=== PATIENT | male | born 1975 | race Caucasian/White ===

== ENCOUNTER 2020-11-22 11:21 | Inpatient (IN) | payer BC, OTHER ==
[2020-11-22 13:59] LABS: Absolute Lymphocytes (CBC) 0.2 K/uL (0.7-4.9); Basophils % 0.2 % (0-1.3); Lymphocytes % 3.1 % (15.3-44.8); MPV 8.7 fL (7.6-11.3); RBC Red Blood Cell Count 6.09 M/uL (4.33-5.43)
--- NOTE | 2020-11-22 14:04 | RAD REPORT ---
EXAM DESCRIPTION: RAD - Chest Single View - 11/22/2020 1:55 pm CLINICAL HISTORY: SOB Chest pain. COMPARISON: No comparisons FINDINGS: Portable technique limits examination quality. Extensive pulmonary opacities are present, more severe on the left, likely related to underlying COVI D-19 infection. The heart is normal in size. No displaced fractures.
[2020-11-22 14:23] LABS: ALT/SGPT 58 U/L (12-78); AST/SGOT 77 U/L (15-37); Albumin 3.2 g/dL (3.4-5.0); Alkaline Phosphatase 57 U/L (45-117); BUN Blood Urea Nitrogen 10 mg/dL (7-18); Bicarbonate 31 mmol/L (21-32); Bilirubin Direct 0.6 mg/dL (0-0.2); Bilirubin Total 1.1 mg/dL (0.2-1.0); Ferritin 838.7 ng/mL (26-388); Glucose Level 173 mg/dL (74-106); Lipase 108 U/L (73-393); Potassium 3.7 mmol/L (3.5-5.1); Protein, Total 7.4 g/dL (6.4-8.2); Sodium Level 133 mmol/L (136-145); Troponin (Emerg Dept Use Only) < 0.02 ng/mL (0.0-0.045)
[2020-11-22 14:37] LABS: Protime INR 1.18
[2020-11-22] MEDS ORDERED: NA CHLORIDE 0.9% 3,000 ML ONE (14:42)
--- NOTE | 2020-11-22 15:09 | RAD REPORT ---
EXAM DESCRIPTION: CT - Chest For Pe Angio - 11/22/2020 2:58 pm CLINICAL HISTORY: Chest pain. Cough;Congestion COMPARISON: No comparisons TECHNIQUE: CT angiogram of the pulmonary arteries was performed with MIP. All CT scans are performed using dose optimization technique as appropriate and may include automated exposure control or mA/KV adjustment according to patient size. FINDINGS: No evidence of pulmonary thromboembolism. No acute aortic finding demonstrated. There is extensive bilateral alveolar lung opacity present, greater on the left. This is most compati ble with underlying COVID-19 infection. No significant pericardial or pleural fluid. No concerning bony finding. IMPRESSION: No evidence of pulmonary thromboembolism. Extensive bilateral findings of COVID-19 infection seen, more severe on the left.
[2020-11-22 15:18] LABS: Blood Morphology Comment NOT SEEN (NOT SEEN); Platelet Estimate ADEQ; White Blood Cell Scan OK (OK)
[2020-11-22 15:56] LABS: Urine Blood 2+ (Negative); Urine Glucose 2+ (Negative); Urine Protein 3+ (Negative); Urine pH 6.5 (5.0-7.0)
[2020-11-22 16:52] LABS: Urine Bacteria <20 /HPF (NONE SEEN); Urine Mucus 1+ /HPF (NONE SEEN)
--- NOTE | 2020-11-22 17:21 | ER ---
Nurse's Notes [facility] Name: Chris Haas Age: 45 yrs Sex: Male : 1975 Arrival Date: 11/22/2020 Time: 11:25 Bed 24 Private MD: Diagnosis: SARS-associated coronavirus as the cause of diseases classified elsewhere;Other viral pneumonia;Shortness of breath Presentation: 11/22 12:57 Chief complaint: Patient states: SOB, anxiety, coughing up blood, diarrhea x 1 wk. kg COVID + 11/13. Coronavirus screen: Client denies travel out of the [place] in the last 14 days. At this time, unable to obtain information related to travel outside the [place] Client presents with at least one sign or symptom that may indicate coronavirus-19. Standard/surgical mask placed on the client. Provider contacted for isolation considerations. Client reports previous positive COVID test result. Date of collection: November 13, 2020. Ebola Screen: Patient negative for fever greater than or equal to 101.5 degrees Fahrenheit, and additional compatible Ebola Virus Disease symptoms Patient denies exposure to infectious person. Patient denies travel to an Ebola-affected area in the 21 days before illness onset. Initial Sepsis Screen: Does the patient meet any 2 criteria? No. Patient's initial sepsis screen is negative. Does the patient have a suspected source of infection? No. Patient's initial sepsis screen is negative. Risk Assessment: Do you want to hurt yourself or someone else? Patient reports no desire to harm self or others. Onset of symptoms was November 13, 2020. 12:57 Method Of Arrival: Ambulatory kg 12:57 Acuity: DINESH 3 kg Triage Assessment: 13:00 General: Appears uncomfortable, Behavior is calm, cooperative, appropriate for age, kg quiet. Pain: Complains of pain in face and chest Pain radiates to Generalized Pain currently is 8 out of 10 on a pain scale. at worst was 10 out of 10 on a pain scale. level that patient reports is acceptable is 3 out of 10 on a pain scale. Respiratory: Reports shortness of breath cough that is pain with cough Coughing up blood Onset: The symptoms/episode began/occurred 11/13, the patient has moderate shortness of breath. Historical: - Allergies: 13:00 IV contrast; kg - Home Meds: 13:00 None [Active]; kg - PMHx: 13:00 None; kg - PSHx: 13:00 None; kg - Immunization history:: Adult Immunizations not up to date, Client reports having NOT received the Covid vaccine. - Social history:: Smoking status: Patient denies any tobacco usage or history of. Screenin:02 Abuse screen: Denies threats or abuse. Denies injuries from another. Nutritional kg screening: No deficits noted. Tuberculosis screening: No symptoms or risk factors identified. Fall Risk None identified. Assessment: 13:30 General: Appears in no apparent distress. uncomfortable, Behavior is. General: Reports ca1 feeling ill for > 3 days. Pain: Denies pain. Neuro: Level of Consciousness is awake, alert, obeys commands, Oriented to person, place, time, situation. Cardiovascular: Heart tones S1 S2 present Capillary refill < 3 seconds Patient's skin is warm and dry. Rhythm is sinus tachycardia. Respiratory: Airway is patent Respiratory effort is even, Respiratory pattern is tachypnea Breath sounds are coarse bilaterally. Respiratory: Reports shortness of breath cough that is. GI: Abdomen is flat, non-distended, Bowel sounds present X 4 quads. Abd is soft and non tender. GI: Reports diarrhea, nausea, vomiting. : No signs and/or symptoms were reported regarding the genitourinary system. EENT: No signs and/or symptoms were reported regarding the EENT system. Derm: Skin is intact, is healthy with good turgor, Skin is pink, warm \T\ dry. Musculoskeletal: Circulation, motion, and sensation intact. Capillary refill < 3 seconds. 14:30 Reassessment: Patient appears in no apparent distress at this time. Patient and/or ca1 family updated on plan of care and expected duration. Pain level reassessed. Patient is alert, oriented x 3, equal unlabored respirations, skin warm/dry/pink. 15:28 Reassessment: Patient appears in no apparent distress at this time. Patient and/or ca1 family updated on plan of care and expected duration. Pain level reassessed. Patient is alert, oriented x 3, equal unlabored respirations, skin warm/dry/pink. 16:45 Reassessment: Patient appears in no apparent distress at this time. Patient and/or ca1 family updated on plan of care and expected duration. Pain level reassessed. Patient is alert, oriented x 3, equal unlabored respirations, skin warm/dry/pink. 17:45 Reassessment: Patient appears in no apparent distress at this time. Patient and/or ca1 family updated on plan of care and expected duration. Pain level reassessed. Patient is alert, oriented x 3, equal unlabored respirations, skin warm/dry/pink. 18:45 Reassessment: Patient appears in no apparent distress at this time. Patient and/or ca1 family updated on plan of care and expected duration. Pain level reassessed. Patient is alert, oriented x 3, equal unlabored respirations, skin warm/dry/pink. 19:45 Reassessment: Patient appears in no apparent distress at this time. Patient and/or ca1 family updated on plan of care and expected duration. Pain level reassessed. Patient is alert, oriented x 3, equal unlabored respirations, skin warm/dry/pink. Patient states symptoms have improved. 20:45 Reassessment: Patient appears in no apparent distress at this time. Patient and/or ca1 family updated on plan of care and expected duration. Pain level reassessed. Patient is alert, oriented x 3, equal unlabored respirations, skin warm/dry/pink. 21:50 Reassessment: Patient appears in no apparent distress at this time. Patient and/or ca1 family updated on plan of care and expected duration. Pain level reassessed. Patient is alert, oriented x 3, equal unlabored respirations, skin warm/dry/pink. Vital Signs: 12:57 BP 143 / 91; Pulse 131; Resp 24; Temp 99.1(O); Pulse Ox 88% on R/A; Weight 95.25 kg ca1 (R); Height 5 ft. 11 in. (180.34 cm) (R); Pain 8/10; 13:24 BP 136 / 79; Pulse 126; Resp 24; Pulse Ox 90% on 5 lpm NC; mt 15:28 BP 154 / 93; Pulse 126; Resp 28 S; Pulse Ox 93% on 4 lpm NC; ca1 16:45 BP 165 / 93; Pulse 115; Resp 24; Pulse Ox 92% on 4 lpm NC; ca1 17:45 BP 168 / 94; Pulse 114; Resp 22; Pulse Ox 94% on 4 lpm NC; ca1 18:45 BP 148 / 93; Pulse 109; Resp 22; Pulse Ox 92% on 4 lpm NC; ca1 19:45 BP 169 / 95; Pulse 109; Resp 28; Pulse Ox 94% on 4 lpm NC; ca1 20:45 BP 156 / 89; Pulse 109; Resp 18 S; Pulse Ox 94% on 4 lpm NC; ca1 12:57 Body Mass Index 29.29 (95.25 kg, 180.34 cm) ca1 ED Course: 11:25 Patient arrived in ED. mr 13:00 Triage completed. kg 13:00 Arm band placed on right wrist. kg 13:15 Yousif Michaels MD is Attending Physician. kdr 13:21 Jenelle Dunn, ARAMIS is Primary Nurse. ca1 13:39 Initial lab(s) drawn, by me, sent to lab. Inserted saline lock: 20 gauge in right ca1 antecubital area, using aseptic technique. Blood collected. 13:39 No provider procedures requiring assistance completed. ca1 13:50 Patient has correct armband on for positive identification. Placed in gown. Bed in low ca1 position. Call light in reach. Side rails up X2. bus driver/monitor on. Pulse ox on. NIBP on. 13:55 XRAY Chest (1 view) In Process Unspecified. EDMS 14:39 Notified ED physician of a critical lab result(s). D-Dimer 754. ca1 14:58 CT Chest For PE Angio In Process Unspecified. EDMS 17:19 Shahram Phillips MD is Hospitalizing Provider. kdr 21:52 Patient admitted, IV remains in place. ca1 Administered Medications: 14:25 Drug: NS 0.9% (30 ml/kg) 30 ml/kg Route: IV; Rate: bolus; Site: left antecubital; ca1 17:00 Follow up: IV Status: Completed infusion; IV Intake: 2800ml ca1 15:05 Drug: SOLU-Medrol (methylPrednisoLONE) 125 mg Route: IVP; Site: right antecubital; ca1 15:57 Follow up: Response: No adverse reaction ca1 16:00 Follow up: Response: No adverse reaction ca1 15:08 Drug: Lovenox (enoxaparin) 1 mg/kg Route: Sub-Q; Site: right lower abdomen; ca1 15:57 Follow up: Response: No adverse reaction ca1 16:00 Follow up: Response: No adverse reaction ca1 15:10 Drug: Rocephin - (cefTRIAXone) 1 grams Route: IVPB; Infused Over: 30 mins; Site: right ca1 antecubital; 15:57 Follow up: Response: No adverse reaction; IV Status: Completed infusion ca1 16:00 Follow up: Response: No adverse reaction; IV Status: Completed infusion ca1 Intake: 17:00 IV: 2800ml; Total: 2800ml. ca1 Outcome: 17:21 Decision to Hospitalize by Provider. kdr 21:52 Admitted to ER Hold. Please see [facility] for further documentation. ca1 21:52 Condition: stable 21:52 Condition: improved 21:52 Instructed on the need for admit. 11/25 11:53 Patient left the ED. bd Signatures: Dispatcher [employer] EDMS Gladis Ricks Kevin, MD MD [facility] Mariama Herron, [facility] Jenelle Dunn RN RN ca1 Fatou Lau RN RN kg Corrections: (The following items were deleted from the chart) 11/22 17:11 15:28 BP 154 / 93; Pulse 126bpm; Resp 28bpm; Spontaneous; Pulse Ox 93% RA; ca1 ca1 20:50 12:57 BP 143 / 91; Pulse 131bpm; Resp 24bpm; Pulse Ox 88% RA; Temp 99.1F Oral; 95.25 kg ca1 Reported; Height 5 ft. 11 in. Reported; BMI: 29.2; Pain 8/10; kg
--- NOTE | 2020-11-22 17:21 | EDPHYS ---
Physician Documentation [facility] Name: Chris Haas Age: 45 yrs Sex: Male : 1975 Arrival Date: 11/22/2020 Time: 11:25 Bed 24 Private MD: ED Physician Yousif Michaels HPI: 11/22 19:48 This 45 yrs old Male presents to ER via Ambulatory with complaints of COVID+, kdr Breathing Difficulty, Cough. 19:48 The patient has shortness of breath at rest, with light activity. Onset: The kdr symptoms/episode began/occurred suddenly, 4 day(s) ago. Duration: The symptoms are intermittent, with no pattern. The patient's shortness of breath is aggravated by drinking, exertion, light activity, is alleviated by nothing. Associated signs and symptoms: Pertinent positives: productive cough, hemoptysis, nausea. Severity of symptoms: At their worst the symptoms were mild moderate just prior to arrival, in the emergency department the symptoms are unchanged. The patient has not experienced similar symptoms in the past. The patient has not recently seen a physician. Historical: - Allergies: 13:00 IV contrast; kg - Home Meds: 13:00 None [Active]; kg - PMHx: 13:00 None; kg - PSHx: 13:00 None; kg - Immunization history:: Adult Immunizations not up to date, Client reports having NOT received the Covid vaccine. - Social history:: Smoking status: Patient denies any tobacco usage or history of. ROS: 19:48 Constitutional: Negative for fever, chills, and weight loss, Eyes: Negative for injury, kdr pain, redness, and discharge, Neck: Negative for injury, pain, and swelling, Cardiovascular: Negative for chest pain, palpitations, and edema, Abdomen/GI: Negative for abdominal pain, nausea, vomiting, diarrhea, and constipation, Back: Negative for injury and pain, MS/Extremity: Negative for injury and deformity, Skin: Negative for injury, rash, and discoloration, Neuro: Negative for headache, weakness, numbness, tingling, and seizure activity. Psych: Negative for depression, anxiety, suicide ideation, homicidal ideation, and hallucinations, Allergy/Immunology: Negative for hives, rash, and allergies, Endocrine: Negative for neck swelling, polydipsia, polyuria, polyphagia, and marked weight changes, Hematologic/Lymphatic: Negative for swollen nodes, abnormal bleeding, and unusual bruising. 19:48 Respiratory: Positive for cough, with rust-colored sputum, dyspnea on exertion, shortness of breath, on exertion. Exam: 19:48 Constitutional: This is a well developed, well nourished patient who is awake, alert, kdr and in no acute distress. Head/Face: Normocephalic, atraumatic. Eyes: Pupils equal round and reactive to light, extra-ocular motions intact. Lids and lashes normal. Conjunctiva and sclera are non-icteric and not injected. Cornea within normal limits. Periorbital areas with no swelling, redness, or edema. Neck: Trachea midline, no thyromegaly or masses palpated, and no cervical lymphadenopathy. Supple, full range of motion without nuchal rigidity, or vertebral point tenderness. No Meningismus. Chest/axilla: Normal chest wall appearance and motion. Nontender with no deformity. No lesions are appreciated. Cardiovascular: Regular rate and rhythm with a normal S1 and S2. No gallops, murmurs, or rubs. Normal PMI, no JVD. No pulse deficits. Respiratory: Lungs have equal breath sounds bilaterally, clear to auscultation and percussion. No rales, rhonchi or wheezes noted. No increased work of breathing, no retractions or nasal flaring. Abdomen/GI: Soft, non-tender, with normal bowel sounds. No distension or tympany. No guarding or rebound. No evidence of tenderness throughout. Back: No spinal tenderness. No costovertebral tenderness. Full range of motion. Skin: Warm, dry with normal turgor. Normal color with no rashes, no lesions, and no evidence of cellulitis. MS/ Extremity: Pulses equal, no cyanosis. Neurovascular intact. Full, normal range of motion. Neuro: Awake and alert, GCS 15, oriented to person, place, time, and situation. Cranial nerves II-XII grossly intact. Motor strength 5/5 in all extremities. Sensory grossly intact. Cerebellar exam normal. Normal gait. Psych: Awake, alert, with orientation to person, place and time. Behavior, mood, and affect are within normal limits. 19:48 Respiratory: the patient does not display signs of respiratory distress, Respirations: normal, Breath sounds: rhonchi, that are mild, are scattered. Vital Signs: 12:57 BP 143 / 91; Pulse 131; Resp 24; Temp 99.1(O); Pulse Ox 88% on R/A; Weight 95.25 kg ca1 (R); Height 5 ft. 11 in. (180.34 cm) (R); Pain 8/10; 13:24 BP 136 / 79; Pulse 126; Resp 24; Pulse Ox 90% on 5 lpm NC; mt 15:28 BP 154 / 93; Pulse 126; Resp 28 S; Pulse Ox 93% on 4 lpm NC; ca1 16:45 BP 165 / 93; Pulse 115; Resp 24; Pulse Ox 92% on 4 lpm NC; ca1 17:45 BP 168 / 94; Pulse 114; Resp 22; Pulse Ox 94% on 4 lpm NC; ca1 18:45 BP 148 / 93; Pulse 109; Resp 22; Pulse Ox 92% on 4 lpm NC; ca1 19:45 BP 169 / 95; Pulse 109; Resp 28; Pulse Ox 94% on 4 lpm NC; ca1 20:45 BP 156 / 89; Pulse 109; Resp 18 S; Pulse Ox 94% on 4 lpm NC; ca1 12:57 Body Mass Index 29.29 (95.25 kg, 180.34 cm) ca1 MDM: 17:21 Patient medically screened. kdr 19:48 Data reviewed: vital signs, nurses notes, lab test result(s), radiologic studies. kdr Counseling: I had a detailed discussion with the patient and/or guardian regarding: the historical points, exam findings, and any diagnostic results supporting the discharge/admit diagnosis, lab results, radiology results, the need for outpatient follow up. 11/22 13:15 Order name: BMP kdr 11/22 13:15 Order name: Blood Culture Adult (2) kdr 11/22 13:15 Order name: C-Reactive Protein kdr 11/22 13:15 Order name: CBC with Diff; Complete Time: 15:57 kdr 11/22 13:15 Order name: D-Dimer; Complete Time: 14:58 kdr 11/22 13:15 Order name: Ferritin; Complete Time: 14:58 kdr 11/22 13:15 Order name: Flu; Complete Time: 15:57 kdr 11/22 13:15 Order name: LFT's; Complete Time: 14:58 kdr 11/22 13:15 Order name: Lactate; Complete Time: 14:58 kdr 08 13:15 Order name: Lipase; Complete Time: 14:58 kdr 08 13:15 Order name: PT-INR; Complete Time: 14:58 kdr 08 13:15 Order name: Procalcitonin; Complete Time: 14:58 kdr 08 13:15 Order name: Ptt, Activated; Complete Time: 14:58 kdr 08 13:15 Order name: Strep; Complete Time: 15:57 kdr 08 13:15 Order name: Troponin (emerg Dept Use Only); Complete Time: 14:58 kdr 11/22 13:15 Order name: Urine Microscopic Only; Complete Time: 17:15 kdr 08 13:16 Order name: Basic Metabolic Panel; Complete Time: 14:58 EDMS 11/22 13:16 Order name: Blood Culture EDMS 11/22 13:16 Order name: C-Reactive Protein; Complete Time: 14:58 EDMS 11/22 15:12 Order name: Throat Culture EDMS 11/22 15:18 Order name: CBC Smear Scan; Complete Time: 15:57 EDMS 11/22 15:56 Order name: Urine Dipstick-Ancillary; Complete Time: 15:57 EDMS 11/22 16:54 Order name: Urine Culture EDMS 11/23 07:07 Order name: D-Dimer EDMS 11/23 07:11 Order name: CBC with Automated Diff EDMS 11/23 07:45 Order name: Comprehensive Metabolic Panel EDMS 11/23 07:45 Order name: Lipid Profile EDMS 11/23 07:45 Order name: C-Reactive Protein EDMS 11/23 07:45 Order name: T4 Free EDMS 11/23 07:45 Order name: Thyroid Stimulating Hormone EDMS 11/22 13:07 Order name: XRAY Chest (1 view); Complete Time: 14:58 kg 11/22 13:15 Order name: EKG; Complete Time: 13:16 kdr 11/22 13:15 Order name: Cardiac monitoring; Complete Time: 13:48 kdr 11/22 14:40 Order name: CT Chest For PE Angio; Complete Time: 15:57 kdr 11/22 17:58 Order name: Diet Regular; Complete Time: 17:58 eb 11/23 07:45 Order name: Ferritin EDMS 11/23 09:10 Order name: Hemoglobin A1c EDMS 11/23 18:15 Order name: Glucose, Ancillary Testing EDMS 11/23 21:29 Order name: Glucose, Ancillary Testing EDMS 11/24 05:57 Order name: CBC with Automated Diff EDMS 11/24 06:14 Order name: Blood Culture EDMS 11/24 06:15 Order name: Comprehensive Metabolic Panel EDMS 11/24 06:15 Order name: C-Reactive Protein EDMS 11/24 06:15 Order name: Magnesium EDMS 11/24 06:15 Order name: Ferritin EDMS 11/24 06:39 Order name: D-Dimer EDMS 11/24 11:04 Order name: CBC Smear Scan EDMS 11/24 11:29 Order name: Glucose, Ancillary Testing EDMS 11/24 16:47 Order name: Glucose, Ancillary Testing EDMS 11/24 20:03 Order name: Glucose, Ancillary Testing EDMS 11/25 05:39 Order name: CBC with Automated Diff EDMS 11/25 05:55 Order name: D-Dimer EDMS 11/25 05:56 Order name: Comprehensive Metabolic Panel EDMS 11/25 05:56 Order name: C-Reactive Protein EDMS 11/25 05:56 Order name: Ferritin EDMS 11/25 08:04 Order name: Glucose, Ancillary Testing EDMS 11/25 09:15 Order name: RAD EDMS 11/25 11:33 Order name: Glucose, Ancillary Testing EDMS 11/22 13:15 Order name: Droplet/Contact Precautions; Complete Time: 13:48 kdr 11/22 13:15 Order name: EKG - Nurse/Tech; Complete Time: 13:48 kdr 11/22 13:15 Order name: IV Start; Complete Time: 13:48 kdr 11/22 13:15 Order name: Labs collected and sent; Complete Time: 13:48 kdr 11/22 13:15 Order name: O2 Per Protocol; Complete Time: 13:48 kdr 11/22 13:15 Order name: O2 Sat Monitoring; Complete Time: 13:48 kdr 11/22 13:15 Order name: Urine Dipstick-Ancillary (obtain specimen); Complete Time: 15:57 kdr Administered Medications: 14:25 Drug: NS 0.9% (30 ml/kg) 30 ml/kg Route: IV; Rate: bolus; Site: left antecubital; ca1 17:00 Follow up: IV Status: Completed infusion; IV Intake: 2800ml ca1 15:05 Drug: SOLU-Medrol (methylPrednisoLONE) 125 mg Route: IVP; Site: right antecubital; ca1 15:57 Follow up: Response: No adverse reaction ca1 16:00 Follow up: Response: No adverse reaction ca1 15:08 Drug: Lovenox (enoxaparin) 1 mg/kg Route: Sub-Q; Site: right lower abdomen; ca1 15:57 Follow up: Response: No adverse reaction ca1 16:00 Follow up: Response: No adverse reaction ca1 15:10 Drug: Rocephin - (cefTRIAXone) 1 grams Route: IVPB; Infused Over: 30 mins; Site: right ca1 antecubital; 15:57 Follow up: Response: No adverse reaction; IV Status: Completed infusion ca1 16:00 Follow up: Response: No adverse reaction; IV Status: Completed infusion ca1 Disposition Summary: 11/22/20 17:21 Hospitalization Ordered Hospitalization Status: Inpatient Admission kdr Provider: Shahram Phillips kdr Condition: Fair kdr Problem: an acute exacerbation kdr Symptoms: have improved kdr Bed/Room Type: Standard kdr Location: Telemetry/MedSurg (Inpatient)(11/25/20 07:16) [facility] Room Assignment: [facility](11/25/20 07:18) [facility] Diagnosis - SARS-associated coronavirus as the cause of diseases classified elsewhere kdr - Other viral pneumonia kdr - Shortness of breath kdr Forms: - Medication Reconciliation Form kdr - SBAR form kdr Signatures: Dispatcher [employer] EDYousif Osborn MD MD kdr Robyn Eddy RN RN Anton Siddiqui RN RN [facility] Jenelle Dunn RN RN [facility] Fatou Lau RN RN kg Corrections: (The following items were deleted from the chart) 13:48 13:15 Ruiz ordered. kdr ca1 21:47 17:21 Telemetry/MedSurg (Inpatient) kdr cg 21:47 17:21 kdr 11/25 07:16 08/06 21:47 [facility] ER HOLD cg [facility] 11/25 07:16 08 21:47 ERHOLD- cg [facility] 11/25 07:18 07:16 [address] [place] [id number]
--- NOTE | 2020-11-22 19:19 | P.HP ---
Certification for Inpatient Patient admitted to: Inpatient With expected LOS: >2 Midnights Patient will require the following post-hospital care: None Practitioner: I am a practitioner with admitting privileges, knowledge of patient current condition, hospital course, and medical plan of care. Services: Services provided to patient in accordance with Admission requirements found in Title 42 Section 412.3 of the Code of Federal Regulations Patient History Date of Service: 11/22/20 Primary Care Provider: None Reason for admission: COVID-19 pneumonia History of Present Illness: 45-year-old male with no significant past medical or surgical history presents emergency department for shortness of breath. Patient was testing positive for Covid on 11/13/2020, patient is not vaccinated. Patient also reports of mild hemoptysis that started today. Patient noted to be hypoxic on room air in the 80s requiring nasal cannula at 4 to 6 L at this time. Labs significant for D-dimer 754 sodium 133 chloride 95 glucose 173 ferritin 830 8T bili 1.1D bili 0.6 AST 77 C-reactive protein 118 procalcitonin 0.17 urine with 2+ glucose 2+ ketones 2+ blood. CT PE protocol demonstrates no evidence of pulmonary embolism, extensive bilateral COVID-19 findings more severe on the left. ED provider wishes to admit for further evaluation and management. 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 - Family History Father -: Hypertension - Social History Smoking Status: Never smoker Alcohol use: No CD- Drugs: No Caffeine use: Yes Place of Residence: Home Review of Systems 10-point ROS is otherwise unremarkable General: Fever, Weakness, Malaise Respiratory: Cough, Dry, Shortness of Breath, Hemoptysis, SOB with Excertion Physical Examination - Physical Exam General: Alert, In no apparent distress, Oriented x3 HEENT: Atraumatic, PERRLA, Mucous membr. moist/pink, EOMI, Sclerae nonicteric Neck: Supple, 2+ carotid pulse no bruit, No LAD, Without JVD or thyroid abnormality Respiratory: Diminished, Other (Tachypnea, dyspnea) Cardiovascular: Regular rate/rhythm, Normal S1 S2 Gastrointestinal: Normal bowel sounds, No tenderness Musculoskeletal: No tenderness Integumentary: No rashes Neurological: Normal speech, Normal strength at 5/5 x4 extr, Normal tone, Normal affect - Studies Laboratory Data (last 24 hrs) 11/22/20 13:39: PT 13.6 H, INR 1.18, APTT 30.1 11/22/20 13:39: WBC 6.60, Hgb 17.5, Hct 53.0 H, Plt Count 156 11/22/20 13:39: Sodium 133 L, Potassium 3.7, BUN 10, Creatinine 0.86, Glucose 173 H, Total Bilirubin 1.1 H, AST 77 H, ALT 58, Alkaline Phosphatase 57, Lipase 108 Microbiology Data (last 24 hrs): 11/22/20 13:45 Throat Group A Streptococcus Rapid Screen - Final 11/22/20 13:45 Nasopharnyx Influenza Type A Antigen Screen - Final 11/22/20 13:45 Nasopharnyx Influenza Type B Antigen Screen - Final Assessment and Plan - Plan Assessment: Acute hypoxic respiratory failure secondary to COVID-19 pneumonia with mild hemoptysis Hyperglycemia Plan: Acute hypoxic respiratory failure secondary to COVID-19 pneumonia with mild hemoptysis: Continue with IV steroids, oral supplements, Lovenox 40 mg subcu twice daily as patient does have mild hemoptysis at this time. Ivermectin, patient should qualify for baricitinib, this has been ordered as pharmacy consult. Supplemental oxygen as needed, daily room air saturations. Hyperglycemia: A1c with morning labs, blood sugar elevated around 200, patient not a known diabetic. May need a [facility] Accu-Chek, sliding scale insulin. DVT PPX: Lovenox 40 subcu twice daily Code status: Full Discharge Plan: Home Plan to discharge in: Greater than 2 days - Advance Directives Does patient have a Living Will: No Does patient have a Durable POA for Healthcare: No - Code Status/Comfort Care Code Status Assessed: Yes (Full code) Critical Care: No Time Spent Managing Pts Care (In Minutes): 55
[2020-11-22 20:50] VITALS: BMI 29.2
[2020-11-22] MEDS ORDERED: MELATONIN 5 MG TABLET PO PRN (21:53)
[2020-11-22] MEDS ORDERED: ONDANSETRON 4 MG/2 ML VIAL IV PRN (21:53)
[2020-11-22] MEDS ORDERED: ACETAMINOPHEN 500 MG TAB PO PRN (21:53)
[2020-11-22] MEDS: ENOXAPARIN 40 MG/0.4 ML SQ SCH (21:53)
[2020-11-22] MEDS: METHYLPREDNISOLONE 40 MG INJ IV SCH (21:53)
[2020-11-23] MEDS: ASCORBIC ACID 500 MG TABLET PO SCH ×5 (01:35→21:00)
[2020-11-23] MEDS ORDERED: ASCORBIC ACID 500 MG TABLET ONE ×4 (01:50→20:18)
[2020-11-23 07:07] LABS: Absolute Lymphocytes (CBC) 0.4 K/uL (0.7-4.9); Basophils % 0.3 % (0-1.3); Lymphocytes % 8.7 % (15.3-44.8); MPV 8.7 fL (7.6-11.3); RBC Red Blood Cell Count 5.95 M/uL (4.33-5.43)
[2020-11-23 07:44] LABS: ALT/SGPT 51 U/L (12-78); AST/SGOT 71 U/L (15-37); Albumin 2.8 g/dL (3.4-5.0); Alkaline Phosphatase 53 U/L (45-117); BUN Blood Urea Nitrogen 11 mg/dL (7-18); Bicarbonate 31 mmol/L (21-32); Bilirubin Total 0.8 mg/dL (0.2-1.0); Ferritin 895.5 ng/mL (26-388); Glucose Level 162 mg/dL (74-106); HDL Cholesterol 21 mg/dL (40-60); LDL Cholesterol, Calculated 58 (<130); Potassium 3.4 mmol/L (3.5-5.1); Protein, Total 6.7 g/dL (6.4-8.2); Sodium Level 137 mmol/L (136-145); Thyroid Stimulating Hormone 0.648 uIU/mL (0.360-3.740)
[2020-11-23] MEDS ORDERED: ZINC SULFATE 220 MG CAP ONE (08:56)
[2020-11-23] MEDS ORDERED: BENZONATATE 100 MG CAP PO ONE ×2 (08:56→22:25)
[2020-11-23] MEDS ORDERED: VITAMIN D 1000 UNIT TAB ONE (08:57)
[2020-11-23] MEDS: IVERMECTIN 3 MG TABLET PO SCH (09:00)
[2020-11-23] MEDS: THIAMINE HCL 100 MG TABLET PO SCH (09:00)
[2020-11-23] MEDS: ASPIRIN EC 81 MG TAB PO SCH (09:00)
[2020-11-23] MEDS: ZINC SULFATE 220 MG CAP PO SCH (09:00)
[2020-11-23] MEDS: METHYLPREDNISOLONE 40 MG INJ IV SCH ×3 (09:00→21:00)
[2020-11-23] MEDS: VITAMIN D 1000 UNIT TAB PO SCH (09:00)
[2020-11-23] MEDS: ENOXAPARIN 40 MG/0.4 ML SQ SCH (09:00)
[2020-11-23] MEDS: BARICITINIB 2 MG TABLET PO SCH (09:00)
[2020-11-23] MEDS ORDERED: ASPIRIN EC 81 MG TAB PO ONE (09:37)
[2020-11-23] MEDS ORDERED: METHYLPREDNISOLONE 125 MG INJ ONE (09:37)
[2020-11-23] MEDS ORDERED: ENOXAPARIN 40 MG/0.4 ML SQ ONE (09:37)
--- NOTE | 2020-11-23 11:41 | P.PN ---
Subjective Date of Service: 11/23/20 Primary Care Provider: None Chief Complaint: COVID-19 pneumonia feeling about the same, improvement in hemoptysis <Anika Reddy - Last Filed: 11/23/20 11:42> Date of Service: 11/23/20 <Shahram Phillips - Last Filed: 11/23/20 14:55> Physical Examination - Vital Signs Temperature: 98.6 F Blood Pressure: 154/75 Pulse: 91 Respirations: 24 Pulse Ox (%): 88 - Studies Laboratory Data (last 24 hrs) 11/22/20 13:39: PT 13.6 H, INR 1.18, APTT 30.1 11/22/20 13:39: WBC 6.60, Hgb 17.5, Hct 53.0 H, Plt Count 156 11/22/20 13:39: Sodium 133 L, Potassium 3.7, BUN 10, Creatinine 0.86, Glucose 173 H, Total Bilirubin 1.1 H, AST 77 H, ALT 58, Alkaline Phosphatase 57, Lipase 108 Microbiology Data (last 24 hrs): 11/22/20 13:45 Throat Group A Streptococcus Rapid Screen - Final 11/22/20 13:45 Nasopharnyx Influenza Type A Antigen Screen - Final 11/22/20 13:45 Nasopharnyx Influenza Type B Antigen Screen - Final <Anika Reddy - Last Filed: 11/23/20 11:42> - Studies Laboratory Data (last 24 hrs) 11/22/20 13:39: WBC 6.60, Hgb 17.5, Hct 53.0 H, Plt Count 156 Microbiology Data (last 24 hrs): 11/22/20 13:45 Throat Group A Streptococcus Rapid Screen - Final 11/22/20 13:45 Nasopharnyx Influenza Type A Antigen Screen - Final 11/22/20 13:45 Nasopharnyx Influenza Type B Antigen Screen - Final <Shahram Phillips - Last Filed: 11/23/20 14:55> Assessment And Plan - Plan Physical Exam: Gen: alert and oriented, cooperative, NAD HEENT: normal conjunctiva, EOMI Respiratory: diminished, tachypneic, on 6L NC CV: regular rate/rhythm Abd: soft, non-tender, non-distended MSK: no swelling Assessment: Acute hypoxic respiratory failure secondary to COVID-19 pneumonia with mild hemoptysis Hyperglycemia Plan: Acute hypoxic respiratory failure secondary to COVID-19 pneumonia with mild hemoptysis: -Continue with IV steroids, oral supplements -Lovenox 40 mg subcu twice daily as patient did have mild hemoptysis -Pulmonology consulted -Continue Ivermectin -Start baricitinib -Trend inflammatory markers -Supplemental oxygen as needed, daily room air saturations. Hyperglycemia: Patient not a known diabetic. Blood sugars continue to be elevated, A1c 6.9. 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 some improvement in hemoptysis, tolerating O2 supplementation, appetite ok NAD, nonlabored respirations on 6L NC, soft, NTND, no edema, regular rate/rhythm <Shahram Phillips - Last Filed: 11/23/20 14:55>
[2020-11-23] MEDS ORDERED: D50W 25 GM/50 ML SYRINGE IV PRN (12:00)
[2020-11-23] MEDS ORDERED: GLUCAGON 1 MG/VIAL IM PRN (12:00)
[2020-11-23] MEDS ORDERED: METHYLPREDNISOLONE 40 MG INJ ONE ×3 (14:10→20:18)
[2020-11-23] MEDS ORDERED: THIAMINE HCL 100 MG TABLET ONE (14:10)
[2020-11-23] MEDS ORDERED: FUROSEMIDE 20 MG/ 2ML VIAL IV ONE (14:47)
--- NOTE | 2020-11-23 14:47 | P.CNS ---
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 - Family History Father Medical History: Hypertension - Social History Alcohol use: No CD- Drugs: No Caffeine use: Yes Place of Residence: Home Review of Systems General: Weakness Respiratory: Shortness of Breath Physical Examination Temp Pulse Resp BP Pulse Ox 98.9 F 95 H 22 H 158/94 H 90 L 11/23/20 12:00 11/23/20 12:00 11/23/20 12:00 11/23/20 12:00 11/23/20 12:00 General: Alert, Oriented x3, Cooperative, Mild distress Laboratory Data (last 24 hrs) 11/22/20 13:39: WBC 6.60, Hgb 17.5, Hct 53.0 H, Plt Count 156 - Problems (1) Pneumonia due to COVID-19 virus Current Visit: Yes Status: Acute Plan: Age 45 no PMH AW ext bialteral penumonia.CT ext bialterla pneumonia/ Barcitinib ordered/ on HF O2/Xarelto
[2020-11-23] MEDS: INSULIN -REGULAR HUMAN 50 UNIT/0.5 ML ML SQ SCH ×2 (16:30→21:00)
[2020-11-23] MEDS: RIVAROXABAN 20 MG TABLET PO SCH (17:00)
[2020-11-23] MEDS ORDERED: FUROSEMIDE 20 MG/ 2ML VIAL ONE (17:51)
[2020-11-24] MEDS: BENZONATATE 100 MG CAP PO PRN (04:19)
[2020-11-24] MEDS ORDERED: BENZONATATE 100 MG CAP PO ONE (04:39)
[2020-11-24 05:52] LABS: Absolute Lymphocytes (CBC) 0.3 K/uL (0.7-4.9); Basophils % 0.1 % (0-1.3); Hematocrit 49.9 % (39.6-49.0); Lymphocytes % 4.5 % (15.3-44.8); MPV 8.1 fL (7.6-11.3); RBC Red Blood Cell Count 5.77 M/uL (4.33-5.43)
[2020-11-24 06:15] LABS: ALT/SGPT 46 U/L (12-78); AST/SGOT 55 U/L (15-37); Albumin 2.6 g/dL (3.4-5.0); Alkaline Phosphatase 54 U/L (45-117); BUN Blood Urea Nitrogen 19 mg/dL (7-18); Bicarbonate 31 mmol/L (21-32); Bilirubin Total 0.8 mg/dL (0.2-1.0); Ferritin 867.4 ng/mL (26-388); Glucose Level 217 mg/dL (74-106); Magnesium 2.4 mg/dL (1.8-2.4); Potassium 3.9 mmol/L (3.5-5.1); Protein, Total 6.5 g/dL (6.4-8.2); Sodium Level 135 mmol/L (136-145)
[2020-11-24] MEDS: ASCORBIC ACID 500 MG TABLET PO SCH ×4 (08:01→20:27)
[2020-11-24] MEDS: ASPIRIN EC 81 MG TAB PO SCH (08:01)
[2020-11-24] MEDS: ZINC SULFATE 220 MG CAP PO SCH (08:01)
[2020-11-24] MEDS: BARICITINIB 2 MG TABLET PO SCH (08:01)
[2020-11-24] MEDS: INSULIN -REGULAR HUMAN 50 UNIT/0.5 ML ML SQ SCH ×4 (08:01→20:26)
[2020-11-24] MEDS: THIAMINE HCL 100 MG TABLET PO SCH (08:01)
[2020-11-24] MEDS: VITAMIN D 1000 UNIT TAB PO SCH (08:01)
[2020-11-24] MEDS: METHYLPREDNISOLONE 40 MG INJ IV SCH ×3 (08:02→20:26)
--- NOTE | 2020-11-24 08:04 | EKG ---
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
[2020-11-24] MEDS ORDERED: INSULIN -REGULAR HUMAN 50 UNIT/0.5 ML ML ONE ×4 (08:18→20:38)
[2020-11-24] MEDS ORDERED: ASCORBIC ACID 500 MG TABLET ONE ×4 (08:20→20:17)
[2020-11-24] MEDS ORDERED: ZINC SULFATE 220 MG CAP ONE (08:20)
[2020-11-24] MEDS ORDERED: METHYLPREDNISOLONE 125 MG INJ ONE (08:20)
[2020-11-24] MEDS ORDERED: VITAMIN D 1000 UNIT TAB ONE (08:21)
[2020-11-24] MEDS ORDERED: ASPIRIN EC 81 MG TAB PO ONE (08:21)
[2020-11-24] MEDS ORDERED: THIAMINE HCL 100 MG TABLET ONE (08:21)
[2020-11-24 11:03] LABS: Blood Morphology Comment NOT SEEN (NOT SEEN); Platelet Estimate ADEQ; White Blood Cell Scan OK (OK)
--- NOTE | 2020-11-24 11:39 | P.PN ---
Subjective Date of Service: 11/24/20 Primary Care Provider: None Chief Complaint: COVID-19 pneumonia feeling about the same. no appetite. denies n/v. <Anika Reddy - Last Filed: 11/24/20 17:27> Date of Service: 11/24/20 <Shahram Phillips - Last Filed: 11/24/20 23:04> Review of Systems 10-point ROS is otherwise unremarkable <Shahram Phillips - Last Filed: 11/24/20 23:04> Physical Examination - Vital Signs Temperature: 97.6 F Blood Pressure: 167/103 Pulse: 112 Respirations: 18 Pulse Ox (%): 90 - Studies Microbiology Data (last 24 hrs): 11/22/20 15:53 Clean Catch Urine [place] Count - Final No growth. 11/22/20 15:53 Clean Catch Urine - Final No growth. <Anika Reddy - Last Filed: 11/24/20 17:27> - Studies Microbiology Data (last 24 hrs): 11/22/20 15:53 Clean Catch Urine [place] Count - Final No growth. 11/22/20 15:53 Clean Catch Urine - Final No growth. <Shahram Phillips - Last Filed: 11/24/20 23:04> Assessment And Plan Physician Review Additional Text: Physical Exam: Gen: alert and oriented, cooperative, NAD HEENT: normal conjunctiva, EOMI Respiratory: labored respirations, tachypneic CV: tachycardic Abd: soft, non-tender, non-distended MSK: no swelling Neuro: speaking normally Assessment: Acute hypoxic respiratory failure secondary to COVID-19 pneumonia with mild hemoptysis Hyperglycemia HTN Plan: Acute hypoxic respiratory failure secondary to COVID-19 pneumonia with mild hemoptysis: -Continue with IV steroids, oral supplements -Lovenox 40 mg subcu twice daily as patient did have mild hemoptysis -Pulmonology consulted -Continue Ivermectin -Started baricitinib 11/23 -Improving inflammatory markers, continue to trend -Supplemental oxygen as needed, daily room air saturations. Hyperglycemia: Patient not a known diabetic. Blood sugars continue to be elevated, A1c 6.9. Continue ADA diet, accuchecks, mild sliding scale insulin HTN: start spironolactone and continue to monitor BP. DVT PPX: Lovenox 40 subcu twice daily Code status: Control And Recovery Combat Rescue Spent Managing PTS Care (In Minutes): 35 <Anika Redyd - Last Filed: 11/24/20 17:27> Physician Review Additional Text: Patient seen and examined with Anika Reddy. Plan of care discussed and agree as noted above. feeling slightly manolo, continue treatment as noted above. <Shahram Phillips - Last Filed: 11/24/20 23:04>
--- NOTE | 2020-11-24 12:35 | P.PN ---
Subjective Date of Service: 11/24/20 Primary Care Provider: None Chief Complaint: COVID-19 pneumonia Stable Review of Systems General: Weakness Respiratory: Shortness of Breath Physical Examination - Vital Signs Temperature: 97.6 F Blood Pressure: 167/103 Pulse: 112 Respirations: 18 Pulse Ox (%): 90 - Studies Microbiology Data (last 24 hrs): 11/22/20 15:53 Clean Catch Urine [place] Count - Final No growth. 11/22/20 15:53 Clean Catch Urine - Final No growth. Assessment & Plan - Problems (Diagnosis) (1) Pneumonia due to COVID-19 virus Current Visit: Yes Status: Acute Plan: Resp failure/ on Max Tx CW decreasing sat down to 90% daily Physician Review: Patient Assessed, Agree with Above Assessment and Plan
[2020-11-24] MEDS ORDERED: METHYLPREDNISOLONE 40 MG INJ ONE ×2 (14:07→20:17)
[2020-11-24] MEDS: RIVAROXABAN 20 MG TABLET PO SCH (16:40)
[2020-11-24] MEDS ORDERED: NA CHLORIDE 0.9% 1,000 ML IV SCH (18:00)
[2020-11-24] MEDS ORDERED: NA CHLORIDE 0.9% 1,000 ML ONE (18:08)
[2020-11-25 05:28] LABS: Absolute Lymphocytes (CBC) 0.5 K/uL (0.7-4.9); Basophils % 0.1 % (0-1.3); Hematocrit 49.7 % (39.6-49.0); Lymphocytes % 4.4 % (15.3-44.8); MPV 8.1 fL (7.6-11.3); RBC Red Blood Cell Count 5.67 M/uL (4.33-5.43)
[2020-11-25 05:56] LABS: ALT/SGPT 42 U/L (12-78); AST/SGOT 47 U/L (15-37); Albumin 2.8 g/dL (3.4-5.0); Alkaline Phosphatase 57 U/L (45-117); BUN Blood Urea Nitrogen 20 mg/dL (7-18); Bicarbonate 31 mmol/L (21-32); Bilirubin Total 0.8 mg/dL (0.2-1.0); Glucose Level 224 mg/dL (74-106); Potassium 3.6 mmol/L (3.5-5.1); Protein, Total 6.6 g/dL (6.4-8.2); Sodium Level 136 mmol/L (136-145)
--- NOTE | 2020-11-25 06:41 | P.PN ---
Subjective Date of Service: 11/25/20 Primary Care Provider: None Chief Complaint: COVID-19 pneumonia pt states he had a rough night. felt feverish and SOB. reports good appetite. <BarryAnika - Last Filed: 11/25/20 17:40> Date of Service: 11/25/20 <Shahram Phillips - Last Filed: 11/25/20 21:23> Review of Systems 10-point ROS is otherwise unremarkable <Anika Reddy - Last Filed: 11/25/20 17:40> Physical Examination - Vital Signs Temperature: 98.0 F Blood Pressure: 156/93 Pulse: 103 Respirations: 28 Pulse Ox (%): 90 - Studies Microbiology Data (last 24 hrs): 11/22/20 15:53 Clean Catch Urine [place] Count - Final No growth. 11/22/20 15:53 Clean Catch Urine - Final No growth. <Anika Reddy - Last Filed: 11/25/20 17:40> - Studies Microbiology Data (last 24 hrs): 11/22/20 13:45 Throat Culture & Sensitivity - Final NORMAL UPPER RESPIRATORY NAILA GROWN. <Shahram Phillips - Last Filed: 11/25/20 21:23> Assessment And Plan - Plan Physical Exam: Gen: alert and oriented, cooperative HEENT: normal conjunctiva, EOMI Respiratory: labored respirations, tachypneic CV: mildly tachycardic Abd: non-tender, non-distended MSK: no swelling Neuro: normal speech Assessment: Acute hypoxic respiratory failure secondary to COVID-19 pneumonia with mild hemoptysis Hyperglycemia HTN Plan: Acute hypoxic respiratory failure secondary to COVID-19 pneumonia with mild hemoptysis: -unchanged CXR today compared to 11/22 -Continue with IV steroids, oral supplements -Lovenox 40 mg subcu twice daily as patient did have mild hemoptysis -Pulmonology consulted -Ivermectin completed -Started baricitinib 11/23 -Improving inflammatory markers, continue to trend -Supplemental oxygen as needed, daily room air saturations. Hyperglycemia: Patient not a known diabetic. Blood sugars continue to be elevated, A1c 6.9. Continue ADA diet, accuchecks. Add long acting insulin and change to moderate SSI HTN: continue spironolactone and continue to monitor BP. DVT PPX: Lovenox 40 subcu twice daily Code status: Full Physician Review: Patient Assessed, Agree with Above Assessment and Plan Time Spent Managing PTS Care (In Minutes): 35 <Anika Reddy - Last Filed: 11/25/20 17:40> - Plan Patient seen and examined with Anika Reddy. Plan of care discussed and agree as noted above. <Shahram Phillips - Last Filed: 11/25/20 21:23>
[2020-11-25] MEDS ORDERED: THIAMINE HCL 100 MG TABLET ONE (07:49)
[2020-11-25] MEDS ORDERED: ZINC SULFATE 220 MG CAP ONE (07:49)
[2020-11-25] MEDS ORDERED: ASCORBIC ACID 500 MG TABLET ONE ×2 (07:49→10:44)
[2020-11-25] MEDS ORDERED: ASPIRIN EC 81 MG TAB PO ONE (07:49)
[2020-11-25] MEDS ORDERED: POTASSIUM CL SA 10 MEQ TAB PO ONE ×2 (07:50→09:00)
[2020-11-25] MEDS ORDERED: VITAMIN D 1000 UNIT TAB ONE (07:50)
[2020-11-25] MEDS: THIAMINE HCL 100 MG TABLET PO SCH (08:20)
[2020-11-25] MEDS: ASPIRIN EC 81 MG TAB PO SCH (08:20)
[2020-11-25] MEDS: VITAMIN D 1000 UNIT TAB PO SCH (08:20)
[2020-11-25] MEDS: ASCORBIC ACID 500 MG TABLET PO SCH ×4 (08:20→21:00)
[2020-11-25] MEDS: ZINC SULFATE 220 MG CAP PO SCH (08:20)
[2020-11-25] MEDS: INSULIN -REGULAR HUMAN 50 UNIT/0.5 ML ML SQ SCH ×4 (08:32→21:00)
[2020-11-25] MEDS: INSULIN GLARGINE 100 UNITS/ML SQ SCH (08:32)
[2020-11-25] MEDS: BARICITINIB 2 MG TABLET PO SCH (08:33)
[2020-11-25] MEDS: IVERMECTIN 3 MG TABLET PO SCH (08:34)
[2020-11-25] MEDS: METHYLPREDNISOLONE 40 MG INJ IV SCH ×2 (08:34→13:15)
[2020-11-25] MEDS ORDERED: INSULIN GLARGINE 100 UNITS/ML SQ ONE (08:50)
[2020-11-25] MEDS ORDERED: METHYLPREDNISOLONE 40 MG INJ ONE ×2 (08:51→10:45)
[2020-11-25] MEDS ORDERED: INSULIN -REGULAR HUMAN 50 UNIT/0.5 ML ML ONE ×2 (08:51→11:53)
--- NOTE | 2020-11-25 09:14 | RAD REPORT ---
EXAM DESCRIPTION: Tracey Single View11/25/2020 8:53 am CLINICAL HISTORY: Chest pain COMPARISON: November 22, 2020 FINDINGS: Marked bilateral lung opacities unchanged Heart remains enlarged IMPRESSION: Marked bilateral lung opacities unchanged probably pneumonia
[2020-11-25] MEDS: SPIRONOLACTONE 25 MG TABLET PO SCH (09:49)
[2020-11-25] MEDS ORDERED: SPIRONOLACTONE 25 MG TABLET ONE (10:10)
[2020-11-25] MEDS: RIVAROXABAN 20 MG TABLET PO SCH (16:02)
[2020-11-25] MEDS: BENZONATATE 100 MG CAP PO PRN (19:20)
[2020-11-25] MEDS: METHYLPREDNISOLONE 125 MG INJ IV SCH (21:00)
--- NOTE | 2020-11-25 21:09 | P.PN ---
Subjective Date of Service: 11/25/20 Primary Care Provider: None Chief Complaint: COVID-19 pneumonia Improving Feverish mild hemoptysis Review of Systems General: Weakness Respiratory: Shortness of Breath Physical Examination - Vital Signs Temperature: 98.0 F Blood Pressure: 156/93 Pulse: 103 Respirations: 28 Pulse Ox (%): 90 - Physical Exam General: Alert, Oriented x3, Cooperative - Studies Microbiology Data (last 24 hrs): 11/22/20 13:45 Throat Culture & Sensitivity - Final NORMAL UPPER RESPIRATORY ANILA GROWN. Assessment & Plan - Problems (Diagnosis) (1) Pneumonia due to COVID-19 virus Current Visit: Yes Status: Acute Plan: CW wean down on O2 poss DC Physician Review: Patient Assessed, Agree with Above Assessment and Plan
[2020-11-26] MEDS: BENZONATATE 100 MG CAP PO PRN ×3 (04:21→20:55)
[2020-11-26 05:54] LABS: Absolute Lymphocytes (CBC) 0.5 K/uL (0.7-4.9); Basophils % 0.2 % (0-1.3); Hematocrit 46.5 % (39.6-49.0); Lymphocytes % 3.8 % (15.3-44.8); MPV 7.8 fL (7.6-11.3); RBC Red Blood Cell Count 5.42 M/uL (4.33-5.43)
[2020-11-26 06:12] LABS: ALT/SGPT 39 U/L (12-78); AST/SGOT 42 U/L (15-37); Albumin 2.8 g/dL (3.4-5.0); Alkaline Phosphatase 60 U/L (45-117); BUN Blood Urea Nitrogen 17 mg/dL (7-18); Bicarbonate 30 mmol/L (21-32); Bilirubin Total 0.9 mg/dL (0.2-1.0); Glucose Level 213 mg/dL (74-106); Protein, Total 6.4 g/dL (6.4-8.2); Sodium Level 134 mmol/L (136-145)
[2020-11-26] MEDS: BARICITINIB 2 MG TABLET PO SCH (09:05)
[2020-11-26] MEDS: METHYLPREDNISOLONE 125 MG INJ IV SCH ×3 (09:05→20:27)
[2020-11-26] MEDS: VITAMIN D 1000 UNIT TAB PO SCH (09:05)
[2020-11-26] MEDS: ASPIRIN EC 81 MG TAB PO SCH (09:05)
[2020-11-26] MEDS: THIAMINE HCL 100 MG TABLET PO SCH (09:05)
[2020-11-26] MEDS: SPIRONOLACTONE 25 MG TABLET PO SCH (09:05)
[2020-11-26] MEDS: ZINC SULFATE 220 MG CAP PO SCH (09:05)
[2020-11-26] MEDS: INSULIN -REGULAR HUMAN 50 UNIT/0.5 ML ML SQ SCH ×4 (09:06→20:27)
[2020-11-26] MEDS: ASCORBIC ACID 500 MG TABLET PO SCH ×4 (09:06→20:28)
[2020-11-26] MEDS: INSULIN GLARGINE 100 UNITS/ML SQ SCH (09:06)
[2020-11-26] MEDS: SOD CHLORIDE 0.65% NASAL SPRAY NAS SCH ×2 (13:45→20:28)
--- NOTE | 2020-11-26 15:27 | P.PN ---
Subjective Date of Service: 11/26/20 Primary Care Provider: None Chief Complaint: COVID-19 pneumonia Subjective: No new changes, Improving Review of Systems General: Unremarkable Eyes: Unremarkable ENT: Unremarkable Respiratory: SOB with Excertion Cardiovascular: Unremarkable Gastrointestinal: Unremarkable Genitourinary: Unremarkable Musculoskeletal: Unremarkable Integumentary: Unremarkable Neurological: Unremarkable Lymphatics: Unremarkable Physical Examination - Vital Signs Temperature: 98.7 F Blood Pressure: 162/84 Pulse: 77 Respirations: 24 Pulse Ox (%): 93 - Physical Exam General: Alert, In no apparent distress, Oriented x3 HEENT: Atraumatic, PERRLA, EOMI Neck: Supple, JVD not distended Respiratory: Diminished Cardiovascular: Regular rate/rhythm, Normal S1 S2 Capillary refill: <2 Seconds Gastrointestinal: Normal bowel sounds, No tenderness Musculoskeletal: No clubbing, No tenderness Integumentary: No rashes Neurological: Normal speech, Normal tone, Normal affect Lymphatics: No axilla or inguinal lymphadenopathy External genitalia: Deferred Assessment And Plan - Plan Acute hypoxic respiratory failure secondary to COVID-19 pneumonia with mild hemoptysis: -Improving clinically. Patient now on 4L\min -Continue with IV steroids, oral supplements -Lovenox 40 mg subcu twice daily as patient did have mild hemoptysis -Pulmonology consulted -Ivermectin completed -Started baricitinib 11/23 -Improving inflammatory markers, continue to trend -Supplemental oxygen as needed, daily room air saturations. Hyperglycemia: Patient not a known diabetic. Blood sugars continue to be elevated, A1c 6.9. Continue ADA diet, accuchecks. Continue long acting insulin and SSI HTN: continue spironolactone and continue to monitor BP. DVT PPX: Lovenox 40 subQ twice daily Code status: Full Physician Review: Patient Assessed, Agree with Above Assessment and Plan Discharge Plan: Home Plan to discharge in: 48 Hours Physician Review: Patient Assessed, Agree with Above Assessment and Plan Critical Care: No
[2020-11-26] MEDS: RIVAROXABAN 20 MG TABLET PO SCH (16:10)
[2020-11-27 05:45] LABS: Absolute Lymphocytes (CBC) 0.9 K/uL (0.7-4.9); Basophils % 0.2 % (0-1.3); MPV 7.9 fL (7.6-11.3); RBC Red Blood Cell Count 5.35 M/uL (4.33-5.43)
[2020-11-27 06:04] LABS: BUN Blood Urea Nitrogen 18 mg/dL (7-18); Bicarbonate 30 mmol/L (21-32); Glucose Level 217 mg/dL (74-106); Potassium 4.5 mmol/L (3.5-5.1); Sodium Level 136 mmol/L (136-145)
[2020-11-27] MEDS: INSULIN GLARGINE 100 UNITS/ML SQ SCH (08:16)
[2020-11-27] MEDS: VITAMIN D 1000 UNIT TAB PO SCH (08:16)
[2020-11-27] MEDS: INSULIN -REGULAR HUMAN 50 UNIT/0.5 ML ML SQ SCH ×2 (08:16→11:54)
[2020-11-27] MEDS: THIAMINE HCL 100 MG TABLET PO SCH (08:17)
[2020-11-27] MEDS: SPIRONOLACTONE 25 MG TABLET PO SCH (08:17)
[2020-11-27] MEDS: ASPIRIN EC 81 MG TAB PO SCH (08:17)
[2020-11-27] MEDS: ASCORBIC ACID 500 MG TABLET PO SCH ×2 (08:17→13:46)
[2020-11-27] MEDS: ZINC SULFATE 220 MG CAP PO SCH (08:17)
[2020-11-27] MEDS: BARICITINIB 2 MG TABLET PO SCH (08:17)
[2020-11-27] MEDS: BENZONATATE 100 MG CAP PO PRN (08:17)
[2020-11-27] MEDS: SOD CHLORIDE 0.65% NASAL SPRAY NAS SCH (08:18)
[2020-11-27] MEDS: METHYLPREDNISOLONE 125 MG INJ IV SCH ×2 (08:23→13:46)
[2020-11-27 10:50] VITALS: O2SAT 96
[2020-11-27 13:04] VITALS: BP 178/86; TEMP 98.3
--- NOTE | 2020-11-27 15:43 | P.DS ---
Admission Date: 11/22/20 Discharge Date: 11/27/20 Primary Care Provider: None Disposition: ROUTINE DISCHARGE Discharge Condition: FAIR Reason for Admission: COVID-19 pneumonia - Problems (1) Acute respiratory failure with hypoxia Current Visit: Yes Status: Acute (2) Hyperglycemia due to type 2 diabetes mellitus Current Visit: Yes Status: Acute (3) Pneumonia due to COVID-19 virus Current Visit: Yes Status: Acute Brief History of Present Illness: 45-year-old male with no significant past medical history presented to the emergency department for shortness of breath. Patient tested positive for Covid on 11/13/2020, patient is not vaccinated. Symptoms associated with hemoptysis. Patient noted to be hypoxic on room air in the 80s requiring nasal cannula at 4 to 6 L at this time. Labs significant for D-dimer 754. CT PE protocol demonstrates no evidence of pulmonary embolism, extensive bilateral COVID-19 findings more severe on the left. Patient admitted for further man agement. Hospital Course: Patient admitted to the medical floor and treated for COVID pneumonia with IV steroid, vitamin supplementation, and zinc supplementation. Patient seen in consultation by pulmonary-. He was treated with Baracitinib. Patient required high-flow oxygen but was eventually weaned down to 4 L oxygen by nasal cannula. He clinically improved with treatment and tolerated oxygen by nasal cannula at rest and with ambulation. Patient is discharged with a prednisone taper. He will follow with Dr. Best within 1 week. Vital Signs/Physical Exam: Temp Pulse Resp BP Pulse Ox 98.3 F 75 16 178/86 H 96 11/27/20 12:00 11/27/20 12:00 11/27/20 12:00 11/27/20 12:00 11/27/20 12:00 General: Alert, In no apparent distress HEENT: Mucous membr. moist/pink Neck: JVD not distended Respiratory: Other (Nonlabored breathing) Cardiovascular: No edema, Regular rate/rhythm, Normal S1 S2 Gastrointestinal: Soft and benign, Non-distended Musculoskeletal: No swelling Integumentary: No rashes Neurological: Normal strength at 5/5 x4 extr Laboratory Data at Discharge: WBC 11.20 K/uL (4.3-10.9) H 11/27/20 05:06 Hgb 15.8 g/dL (13.6-17.9) 11/27/20 05:06 Hct 46.0 % (39.6-49.0) 11/27/20 05:06 Plt Count 325 K/uL (152-406) 11/27/20 05:06 PT 13.6 SECONDS (9.5-12.5) H 11/22/20 13:39 INR 1.18 11/22/20 13:39 APTT 30.1 SECONDS (24.3-36.9) 11/22/20 13:39 Sodium 136 mmol/L (136-145) 11/27/20 05:06 Potassium 4.5 mmol/L (3.5-5.1) 11/27/20 05:06 BUN 18 mg/dL (7-18) 11/27/20 05:06 Creatinine 0.75 mg/dL (0.55-1.3) 11/27/20 05:06 Glucose 217 mg/dL (74-106) H 11/27/20 05:06 Magnesium 2.4 mg/dL (1.8-2.4) 11/24/20 05:36 Total Bilirubin 0.9 mg/dL (0.2-1.0) 11/26/20 05:08 AST 42 U/L (15-37) H 11/26/20 05:08 ALT 39 U/L (12-78) 11/26/20 05:08 Alkaline Phosphatase 60 U/L (45-117) 11/26/20 05:08 Triglycerides 127 mg/dL (<150) 11/23/20 06:30 Cholesterol 104 mg/dL (<200) 11/23/20 06:30 HDL Cholesterol 21 mg/dL (40-60) L 11/23/20 06:30 Cholesterol/HDL Ratio 4.95 11/23/20 06:30 Lipase 108 U/L (73-393) 11/22/20 13:39 Home Medications: Ascorbic Acid [Vitamin C*] 1,000 mg PO TID #180 tablet 11/27/20 Aspirin [Aspirin EC 81 MG] 162 mg PO DAILY #60 tablet.dr 11/27/20 Benzonatate [Tessalon Perle*] 100 mg PO TID PRN #30 cap 11/27/20 Cholecalciferol (Vitamin D3) [Vitamin D3] 4,000 unit PO DAILY #60 capsule 11/27/20 Metformin HCl 500 mg PO BID #60 tablet 11/27/20 Spironolactone [Aldactone*] 25 mg PO DAILY #30 tab 11/27/20 Thiamine HCl [Vitamin B-1*] 200 mg PO DAILY #60 tablet 11/27/20 Zinc Sulfate [Zinc Sulfate*] 220 mg PO DAILY #30 cap 11/27/20 predniSONE [Deltasone] 20 mg PO BID #21 tab 11/27/20 New Medications: Spironolactone [Aldactone*] 25 mg PO DAILY #30 tab Aspirin [Aspirin EC 81 MG] 162 mg PO DAILY #60 tablet. Metformin HCl 500 mg PO BID #60 tablet predniSONE [Deltasone] 20 mg PO BID #21 tab Benzonatate [Tessalon Perle*] 100 mg PO TID PRN #30 cap PRN Reason: Cough Thiamine HCl [Vitamin B-1*] 200 mg PO DAILY #60 tablet Ascorbic Acid [Vitamin C*] 1,000 mg PO TID #180 tablet Cholecalciferol (Vitamin D3) [Vitamin D3] 4,000 unit PO DAILY #60 capsule Zinc Sulfate [Zinc Sulfate*] 220 mg PO DAILY #30 cap Diet: ADA Activity: Ad arnol Followup: Randy Best MD [ACTIVE - CAN ADMIT] - 1 Week NONE,NONE [Primary Care Provider] - Time spent managing pt's care (in minutes): 45
== END 2020-11-27 16:25 | disposition home or self-care (01) | DRG 177 ==
LOC: ER 11:21 → ERHOLD 19:12 → 4TH 11-25 10:55
PROVIDERS: ADMIT Hospitalist; ATTEND Hospitalist
DX: U07.1 COVID-19 (principal); J12.82 Pneumonia due to coronavirus disease 2019; J96.01 Acute respiratory failure with hypoxia; R04.2 Hemoptysis; R73.9 Hyperglycemia, unspecified; I10 Essential (primary) hypertension
CPT/HCPCS: 36415; 71045; 71275; 80048; 80053; 80061; 80076; 81003; 81015; 82728; 82947; 83036; 83605; 83690; 83735; 84145; 84439; 84443; 84484; 85025; 85379; 85610; 85730; 86140; 87040; 87070; 87081; 87086; 87088; 87804; 93005; 94760; 96372; 99285; J1650; J1815; J1940; J2920; J2930; J7030; Q9967